=== PATIENT | male | born 1975 | race Caucasian/White ===

== ENCOUNTER 2019-04-09 21:23 | Emergency (ER) | payer OTHER ==
[~2019-04-09] VITALS: Ht 188 cm; Wt 135.2 kg
[~2019-04-09 21:23] MED LIST: CIPRO500 M1 PO; ZOFRAN4 MG PO
[2019-04-09] MEDS ORDERED: NORVASC10 MG (21:42)
[2019-04-09 22:10] LABS: ABSOLUTE BASOPHILS 0.1 thou/uL (0.0-0.2); ABSOLUTE EOSINOPHILS 0.2 thou/uL (0.0-0.7); ABSOLUTE LYMPHOCYTES 1.7 thou/uL (0.8-5.3); ABSOLUTE MONOCYTES 0.7 thou/uL (0.0-1.2); BASOPHILS 0.8 %; EOSINOPHILS 2.3 %; HEMATOCRIT 50.7 % (42.0-52.0); LYMPHOCYTES 21.9 %; MCH 28.8 pg (26.0-34.0); MCHC 33.5 g/dL (28.0-37.0); MCV 86.1 fL (80.0-100.0); MONOCYTES 8.6 %; MPV 8.9 fl. (7.2-11.1); NUCLEATED RBCS 0 /100WBC; PLATELET COUNT* 244 thou/uL (150-400); POLYS 66.4 %; RBC 5.89 mil/uL (4.50-6.00); RDW-CV 13.6 % (10.5-14.5); WBC 7.6 thou/uL (4.0-11.0)
[2019-04-09] MEDS ORDERED: COREG25 MG PO (22:16)
[2019-04-09 22:18] LABS: ANION GAP 10 mmol/L (7-16); BUN 14 mg/dL (7-18); CALCIUM 8.7 mg/dL (8.5-10.1); CHLORIDE 104 mmol/L (98-107); CO2 28 mmol/L (21-32); GLUCOSE 83 mg/dL (70-99); POTASSIUM 3.8 mmol/L (3.5-5.1); SODIUM 142 mmol/L (136-145)
[2019-04-09 22:29] LABS: ALBUMIN 3.8 g/dL (3.4-5.0); ALKALINE PHOSPHATASE 83 U/L (46-116); SGOT 23 U/L (15-37); SGPT 29 U/L (30-65); TOTAL BILIRUBIN 0.6 mg/dL (<0.1-1.0); TOTAL PROTEIN 7.7 g/dL (6.4-8.2); TROPONIN-I LEVEL <0.06 ng/mL (<0.06)
[2019-04-09 23:42] LABS: URINE BILIRUBIN NEGATIVE (Negative); URINE BLOOD NEGATIVE (Negative); URINE CLARITY CLEAR; URINE COLOR YELLOW; URINE GLUCOSE-RANDOM NEGATIVE (Negative); URINE KETONES NEGATIVE (Negative); URINE LEUKOCYTES-REFLEX NEGATIVE (Negative); URINE NITRITE-REFLEX NEGATIVE (Negative); URINE PROTEIN NEGATIVE (Negative); URINE SPECIFIC GRAVITY 1.015 (1.005-1.030); URINE UROBILINOGEN 0.2 E.U./dl (0.2-1.0)
[2019-04-10 00:37] VITALS: BP 132/77
--- NOTE | 2019-04-10 14:29 | EKG ---
[place] [address] ELECTROCARDIOGRAM REPORT Name: BIN ROY [id number] Admission: 04/09/19 Attend Phys: Discharge: 04/10/19 Date of : 73 Report #: [id number] THIS REPORT FOR: //name// [facility] ED Test Date: 2019-04-09 Test Time: 21:40:51 Pat Name: BIN ROY Department: Room: Gender: M [employer]ball Umpire: JANNETTE : 1975 Requested By: Annalee Carmona Order Number: [id number] MD: Anjel Levine Measurements Intervals [place] Rate: 63 P: 7 DE: 190 QRS: -6 QRSD: 136 T: -8 QT: 424 QTc: 435 Interpretive Statements Sinus rhythm Nonspecific intraventricular conduction delay Borderline T abnormalities, inferior leads Baseline wander in lead(s) II,III,aVR,aVL,aVF,V1,V3,V4 No previous ECG available for comparison Electronically Signed On 04-10-2019 14:29:20 CDT by Anjel Levine [email or web address] <ELECTRONICALLY SIGNED> By: Anjel Levine MD, [facility] 04/10/19 1429 Anjel Levine MD, [facility] /EPI
== END 2019-04-10 00:37 | disposition home or self-care (01) ==
LOC: M.ERS 21:23
PROVIDERS: Personal Emergency Response Attendant
DX: I49.9 Cardiac arrhythmia, unspecified (principal); R42 Dizziness and giddiness